=== PATIENT | male | born 1990 | race Two or more races ===

== ENCOUNTER 2016-09-11 19:11 | Emergency (ER) | payer SELFPAY ==
[~2016-09-11] VITALS: Ht 182.9 cm; Wt 90.7 kg
[~2016-09-11 19:11] MED LIST: CLINDAMYCIN HC300 MG ORAL; ERYTHROMYCIN500 M1 ORAL; IBUPROFEN800 MG ORAL
[2016-09-11] MEDS ORDERED: NKM (19:47)
[2016-09-11] MEDS ORDERED: IBUPROFEN600 MG ORAL (20:42)
[2016-09-11] MEDS ORDERED: TRAMADOL HCL50 MG ORAL (20:42)
[2016-09-11 21:13] VITALS: BP 121/70
--- NOTE | 2016-09-12 10:50 | Diagnostic Imaging Report ---
Indication: PAIN, status post trauma one day earlier Technique: 3 views of the right ankle Comparison: none Findings: There is soft tissue swelling over the lateral malleolus. No acute fractures. No dislocations. Joint spaces are preserved. Impression: Evidence of soft tissue injury. No acute bony trauma
--- NOTE | 2016-09-12 12:38 | Emergency Room Report ---
History of Present Illness General Chief Complaint: Lower Extremity Injury Source: Patient Present Illness HPI The patient is a 25 yo M presenting for right ankle injury which occurred 2 days prior. The patient states he was playing basketball, jumped, and landed on the right foot which buckled underneath him. Patient states pain is now a 6/ 10 dull ache it does not radiate from the ankle. Pain is worse with walking. The patient states he has torn ligaments in this ankle years prior. The patient denies any symptoms including numbness or tingling Allergies: Coded Allergies: PIPERACILLIN (Verified Allergy, Mild, rash, 10/23/14) TAZOBACTAM (Verified Allergy, Mild, rash, 10/23/14) Patient History Past Medical History: see triage record Pertinent Family History: none Reviewed Nursing Documentation: PMH: Agreed, PSxH: Agreed Nursing Documentation-PMH Past Medical History: No Stated History Review of Systems All Other Systems: negative except mentioned in HPI Physical Exam Vital Signs Date Time Temp Pulse Resp B/P Pulse Ox O2 Delivery O2 Flow Rate FiO2 09/11/16 19:41 97.9 83 16 113/65 98 Room Air Sp02 EP Interpretation: reviewed, normal General Appearance: no apparent distress, alert, GCS 15, non-toxic Head: normocephalic, atraumatic Eyes: bilateral eye PERRL, bilateral eye normal inspection ENT: hearing grossly normal, normal pharynx, no angioedema, normal voice Musculoskeletal: no calf tenderness, decreased range of motion - R ankle, swelling - R ankle diffuse, tender - diffuse R ankle Neurologic: alert, oriented x3, responsive, motor strength/tone normal, sensory intact, speech normal, abnormal gait - antalgic gait Psychiatric: judgement/insight normal, memory normal, mood/affect normal, no suicidal/homicidal ideation Skin: normal color, no rash, warm/dry, well hydrated Lymphatic: no adenopathy Procedures Splinting Splinting : Consent: Verbal Location: R ankle Hand-Made Type: plaster Splint: poserior short Pre-Proc Neuro Vasc Exam: normal Post-Proc Neuro Vasc Exam: normal Patient Tolerated: Well Complications: None Medical Decision Making PA Attestation Dr. Carranza is my supervising physician. Patient management was discussed with my supervising physician Diagnostic Impression: Primary Impression: Ankle sprain ER Course The patient is a 25 yo M presenting for right ankle injury Ddx considered include but not limited to sprain/strain, fracture, contusion Physical exam: Vitals within normal limits. No apparent distress Right ankle: There is diffuse 1+ edema. No ecchymosis. Limited active range of motion due to pain. Patient ambulates with antalgic gait X-ray of the ankle shows no bony deformity. There is soft tissue swelling. Patient is placed in a posterior splint and given crutches. The patient is advised that he needs to follow up with PMD and orthopedics. ER precautions are given Other X-Ray Diagnostic Results Other X-Ray Diagnostic Results : X-Ray Ordered: R ankle Date: Sep 11, 2016 EP Interpretation: Yes Findings: no fractures, no dislocation, other - + STS Number of Views: 3 PA Scribe Text I am acting as scribe for my supervising physician. My supervising physician's interpretation of the R ankle xrays are there are no fractures, dislocations . There is STS. Last Vital Signs Date Time Temp Pulse Resp B/P Pulse Ox O2 Delivery O2 Flow Rate FiO2 09/11/16 21:14 98.1 09/11/16 21:13 80 14 121/70 100 Room Air Status: improved Disposition: HOME, SELF-CARE Condition: Improved Scripts Tramadol Hcl* (ULTRAM*) 50 Mg Tablet 50 MG ORAL Q6H Y for For Pain, #8 TAB 0 Refills Prov: CHARLINE KATHLEEN P.A. 09/11/16 Ibuprofen* (MOTRIN*) 600 Mg Tablet 600 MG ORAL Q8H Y for For Pain, #30 TAB 0 Refills Prov: CHARLINE KATHLEEN P.A. 09/11/16 Referrals: NOT CHOSEN [facility]/,REFERRING (PCP) Patient Instructions: Ankle Sprain Additional Instructions: I discussed my findings with the patient. All questions and concerns have been answered. Treatment and medication compliance have been addressed. I advised the patient that they need to follow up with PMD in 3-5 days. Return to ED if pain remains or worsens, numbness or tingling occurs, new rash is noticed, fever is noticed, or if needed for any reason. Patient verbalized understanding of discharge instructions. The patient will need to obtain MRI as discussed. CHARLINE KATHLEEN Sep 12, 2016 12:38
== END 2016-09-11 21:13 | disposition home or self-care (01) ==
LOC: EMR 20:41
DX: S93.401A Sprain of unspecified ligament of right ankle, initial encounter (principal); Y93.67 Activity, basketball; Y92.9 Unspecified place or not applicable; Z88.8 Allergy status to other drugs, medicaments and biological substances
CPT/HCPCS: 99284

== ENCOUNTER 2016-11-28 20:38 | Emergency (ER) | payer SELFPAY ==
[~2016-11-28] VITALS: Ht 182.9 cm; Wt 90.7 kg
[~2016-11-28 20:38] MED LIST changes: +IBUPROFEN600 MG ORAL; +NKM; +TRAMADOL HCL50 MG ORAL
[2016-11-28 21:08] VITALS: BP 133/78
[2016-11-28] MEDS ORDERED: PredniSONE 20mg tab ORAL ONE (21:15)
--- NOTE | 2016-11-28 21:20 | Emergency Room Report ---
History of Present Illness General Chief Complaint: Skin Rash/Abscess Source: Patient Present Illness HPI Patient present with complaints of rash that he gets off-and-on for the past one year On further questioning he has moved to a new living location And soon after that this started Patient reports that he gets a rash usually on one side of the body soon after followed on the other side Yesterday he had a rash on the back and the bottom of his feet And was concerning came to the ER There is a note regarding difficulty swallowing however patient denies any sore throat or difficulty swallowing He states that he felt the rash was his tongue Denies any chest pain or shortness of breath Allergies: Coded Allergies: PIPERACILLIN (Verified Allergy, Mild, rash, 11/28/16) TAZOBACTAM (Verified Allergy, Mild, rash, 11/28/16) Patient History Past Medical History: see triage record Pertinent Family History: none Reviewed Nursing Documentation: PMH: Agreed, PSxH: Agreed Nursing Documentation-PMH Past Medical History: No Stated History Review of Systems All Other Systems: negative except mentioned in HPI Physical Exam Vital Signs Date Time Temp Pulse Resp B/P Pulse Ox O2 Delivery O2 Flow Rate FiO2 11/28/16 20:47 97.9 78 16 133/78 97 Room Air Sp02 EP Interpretation: reviewed, normal General Appearance: well appearing, no apparent distress Head: normocephalic, atraumatic Eyes: bilateral eye EOMI, bilateral eye PERRL ENT: hearing grossly normal, normal pharynx, TMs + canals normal, uvula midline Neck: full range of motion, supple, no meningismus, no bony tend Respiratory: lungs clear, normal breath sounds, no rhonchi, no respiratory distress, no retraction, no accessory muscle use Cardiovascular #1: normal peripheral pulses, regular rate, rhythm, no edema, no gallop, no JVD, no murmur Gastrointestinal: normal bowel sounds, non tender, soft, no mass, no organomegaly, non-distended, no guarding, no hernia, no pulsatile mass, no rebound Genitourinary: no CVA tenderness Musculoskeletal: normal inspection Neurologic: oriented x3, responsive, office helper clerical III-XII nml as tested, motor strength/ tone normal, sensory intact Psychiatric: mood/affect normal Skin: normal color, warm/dry, palpation normal, other - Patient has several areas of urticaria on the left upper back, also lower chest area, do not appear to be dermatomal do not appear fluctuant Lymphatic: normal inspection, no adenopathy Medical Decision Making Diagnostic Impression: Primary Impression: Rash and other nonspecific skin eruption ER Course There is no involvement of the airway patient appears to be having a reaction The source is unclear patient was acutely treated in the emergency room And is otherwise stable for close outpatient followup Given that the symptoms have been ongoing for over one year Patient would benefit from dermatology followup Last Vital Signs Date Time Temp Pulse Resp B/P Pulse Ox O2 Delivery O2 Flow Rate FiO2 11/28/16 21:08 97.9 16 133/78 97 Room Air 11/28/16 20:47 78 Status: improved Disposition: HOME, SELF-CARE Condition: Improved Scripts Ranitidine Hcl* (ZANTAC*) 150 Mg Tablet 150 MG ORAL TWICE A DAY, #30 TAB Prov: GREGG DAILEY D.O. 11/28/16 Diphenhydramine Hcl* (BENADRYL*) 25 Mg Capsule 25 MG ORAL Q6H Y for Itching, #30 CAP Prov: GREGG DAILEY D.O. 11/28/16 Prednisone* (PREDNISONE*) 20 Mg Tablet 20 MG ORAL BID, #8 TAB Prov: GREGG DAILEY D.O. 11/28/16 Referrals: NOT CHOSEN [facility]/,REFERRING (PCP) Additional Instructions: Patient is provided with the discharge instructions notified to follow up with primary doctor in the next 2-3 days otherwise return to the er with any worsening symptoms. Please note that this report is being documented using [employer] technology. This can lead to erroneous entry secondary to incorrect interpretation by the dictating instrument. GREGG DAILEY D.O. Nov 28, 2016 21:20
[2016-11-28] MEDS ORDERED: PREDNISONE20 MG ORAL (21:49)
[2016-11-28] MEDS ORDERED: RANITIDINE HCL150 MG ORAL (21:49)
[2016-11-28] MEDS ORDERED: BENADRYL25 MG ORAL (21:49)
[2016-11-28 21:50] VITALS: BP 133/78
== END 2016-11-28 21:50 | disposition home or self-care (01) ==
LOC: EMR 21:02
DX: R21 Rash and other nonspecific skin eruption (principal); Z88.8 Allergy status to other drugs, medicaments and biological substances
CPT/HCPCS: 99284